=== PATIENT | female | born 2000 | race American Indian/Alaskan Native ===

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

== ENCOUNTER 2020-12-30 13:45 | Emergency (ER) | payer SELFPAY ==
[2020-12-30 14:00] VITALS: BP 112/70
--- NOTE | 2020-12-30 14:27 | Emergency Department Report ---
- General Chief Complaint: Upper Respiratory Infection Stated Complaint: COLD/NEEDS DOCTORS NOTE Time Seen by Provider: 12/30/20 14:19 Source: patient Mode of arrival: Ambulatory Limitations: No Limitations - History of Present Illness Initial Comments: pt is a 20 yo female who presents to the ED with c/o a "cold" that began two days ago. she states her associated symptoms are dry cough, sneezing, rhinorrhea. she states she had a subjective fever yesterday but did not take her temperature. she has not taking anything for cold symptoms. she denies any CP, SOB, n/v/d, dizziness, abd pain, urinary symptoms. no pmhx. no allergies to meds. LNMP 11/16/2020, denies states she has irregular cycles. she denies any known sick contacts or recent travel. she is requesting a note to return to work. - Related Data Home Medications Medication Instructions Recorded Confirmed Last Taken Albuterol Mdi (or & Nicu Only) 2 puff IH QID PRN 11/25/14 11/25/14 11/24/14 [Proair] Fluticasone (Nf) [Flovent Hfa (Nf)] 2 puff IH BID 11/25/14 11/25/14 11/22/14 Previous Rx's Medication Instructions Recorded Last Taken Type Benzonatate [Tessalon Perles] 100 mg PO Q8HR #30 capsule 11/26/14 Unknown Rx Penicillin Vk [Veetids TAB] 500 mg PO BID #20 tablet 11/26/14 Unknown Rx Ibuprofen [Motrin] 600 mg PO Q8H PRN #15 tablet 02/03/18 Unknown Rx Penicillin V Potassium 500 mg PO Q8H 10 Days #30 tablet 02/03/18 Unknown Rx Amoxicillin/Potassium Clav 1 each PO Q12H #20 tablet 10/12/19 Unknown Rx [Augmentin 500-125 Tablet] Ibuprofen [Motrin] 600 mg PO Q8H PRN #20 tablet 10/12/19 Unknown Rx Nystas/Diphen/Xyl Visc/Mylanta 15 ml MM Q6H PRN 5 Days ml 10/12/19 Unknown Rx [Magic Mouthwash] Allergies Allergy/AdvReac Type Severity Reaction Status Date / Time No Known Allergies Allergy Verified 12/30/20 13:59 ED Review of Systems ROS: Stated complaint: COLD/NEEDS DOCTORS NOTE Other details as noted in HPI Comment: All other systems reviewed and negative ED Past Medical Hx - Past Medical History Hx Hypertension: No Hx CVA: No Hx Heart Attack/AMI: No Hx Congestive Heart Failure: No Hx Diabetes: No Hx Deep Vein Thrombosis: No Hx Pulmonary Embolism: No Hx GERD: No Hx Liver Disease: No Hx Renal Disease: No Hx Sickle Cell Disease: No Hx Arthritis: No Hx Headaches / Migraines: Yes Hx Seizures: No Hx Kidney Stones: No Hx Psychiatric Treatment: No Hx Asthma: Yes Hx COPD: No Hx Tuberculosis: No Hx Dementia: No Hx HIV: No Additional medical history: faint frequently - Surgical History Hx Coronary Stent: No Hx Open Heart Surgery: No Hx Pacemaker: No Hx Internal Defibrillator: No Hx Cholecystectomy: No Hx Appendectomy: No Hx Breast Surgery: No - Social History Smoking Status: Current Every Day Smoker Substance Use Type: Marijuana - Medications Home Medications: Home Medications Medication Instructions Recorded Confirmed Last Taken Type Albuterol Mdi (or & Nicu Only) 2 puff IH QID PRN 11/25/14 11/25/14 11/24/14 History [Proair] Fluticasone (Nf) [Flovent Hfa (Nf)] 2 puff IH BID 11/25/14 11/25/14 11/22/14 History Benzonatate [Tessalon Perles] 100 mg PO Q8HR #30 capsule 11/26/14 Unknown Rx Penicillin Vk [Veetids TAB] 500 mg PO BID #20 tablet 11/26/14 Unknown Rx Ibuprofen [Motrin] 600 mg PO Q8H PRN #15 tablet 02/03/18 Unknown Rx Penicillin V Potassium 500 mg PO Q8H 10 Days #30 tablet 02/03/18 Unknown Rx Amoxicillin/Potassium Clav 1 each PO Q12H #20 tablet 10/12/19 Unknown Rx [Augmentin 500-125 Tablet] Ibuprofen [Motrin] 600 mg PO Q8H PRN #20 tablet 10/12/19 Unknown Rx Nystas/Diphen/Xyl Visc/Mylanta 15 ml MM Q6H PRN 5 Days ml 10/12/19 Unknown Rx [Magic Mouthwash] ED Physical Exam - General Limitations: No Limitations General appearance: alert, in no apparent distress - Head Head exam: Present: atraumatic, normocephalic - Eye Eye exam: Present: normal appearance - ENT ENT exam: Present: normal orophraynx, mucous membranes moist, TM's normal bilaterally, normal external ear exam - Respiratory Respiratory exam: Present: normal lung sounds bilaterally. Absent: respiratory distress, wheezes, rales, rhonchi, stridor, chest wall tenderness, accessory muscle use, decreased breath sounds, prolonged expiratory - Cardiovascular Cardiovascular Exam: Present: regular rate, normal rhythm, normal heart sounds. Absent: systolic murmur, diastolic murmur, rubs, gallop - Neurological Exam Neurological exam: Present: alert, oriented X3 - Psychiatric Psychiatric exam: Present: normal affect, normal mood - Skin Skin exam: Present: warm, dry, intact ED Course Vital Signs 12/30/20 13:59 Temperature 99.1 F Pulse Rate 95 H Respiratory 18 Rate Blood Pressure 112/70 O2 Sat by Pulse 98 Oximetry ED Medical Decision Making - Medical Decision Making pt is a 20 yo female who presents to the ED with c/o a "cold" that began two days ago. she states her associated symptoms are dry cough, sneezing, rhinorrhea. she states she had a subjective fever yesterday but did not take her temperature. she has not taking anything for cold symptoms. she denies any CP, SOB, n/v/d, dizziness, abd pain, urinary symptoms. no pmhx. no allergies to meds. LNMP 11/16/2020, denies states she has irregular cycles. she denies any known sick contacts or recent travel. she is requesting a note to return to work. Vitals are normal. No abnormality on physical examination as documented in chart. No signs of pharyngitis, tonsillitis, otitis. No clinical signs of bacterial pneumonia or bacterial bronchitis. Symptoms likely related to viral URI. Advised patient may take mucinex or theraflu for your symptoms. may take tylenol as needed for headache, fever, body aches. increase your fluid intake. follow up with a primary care doctor regarding clearance to return to work. return to the emergency room for any new or worsening symptoms. please follow your work protocol regarding viral illnesses and work. Critical care attestation.: If time is entered above; I have spent that time in minutes in the direct care of this critically ill patient, excluding procedure time. ED Disposition Clinical Impression: Viral URI Disposition: TO HOME OR SELFCARE Is pt being admited?: No Does the pt Need Aspirin: No Condition: Stable Instructions: Viral Respiratory Infection Additional Instructions: may take mucinex or theraflu for your symptoms. may take tylenol as needed for headache, fever, body aches. increase your fluid intake. follow up with a primary care doctor regarding clearance to return to work. return to the emergency room for any new or worsening symptoms. please follow your work pr otocol regarding viral illnesses and work. walk in clinic: [facility] in [place], [place] Address: [address] [place] [address], [place] [address] Referrals: PRIMARY MD RESHMA [Primary Care Provider] - 3-5 Days BRIAN HERNANDEZ MD [Staff Physician] - 3-5 Days [facility] [Provider Group] - 3-5 Days Time of Disposition: 14:25 Print Language: MALTESE
== END 2020-12-30 14:44 | disposition home or self-care (01) ==
LOC: ED 13:45
DX: J06.9 Acute upper respiratory infection, unspecified (principal); G43.909 Migraine, unspecified, not intractable, without status migrainosus; J45.909 Unspecified asthma, uncomplicated; F17.200 Nicotine dependence, unspecified, uncomplicated; Z79.899 Other long term (current) drug therapy
CPT/HCPCS: 99282

== ENCOUNTER 2021-08-29 22:33 | Emergency (ER) | payer SELFPAY ==
[2021-08-30] MEDS ORDERED: SODIUM CHLORIDE 0.9% 1000 ML 1,000 ML IV ONE (00:50)
[2021-08-30] MEDS ORDERED: dexAMETHasone 20 MG/5 ML VIAL IV ONE (00:50)
[2021-08-30] MEDS ORDERED: IBUPROFEN ORAL LIQD 100 MG/5 ML ORAL.LIQD PO ONE ×2 (00:51→01:33)
[2021-08-30] MEDS ORDERED: ACETAMINOPHEN 325 MG/10.15 ML ORAL LIQD UNIT DOSE PO ONE (01:33)
[2021-08-30] MEDS ORDERED: LIDOCAINE VISCOUS 2% 15 ML ORAL LIQD PO ONE (01:33)
--- NOTE | 2021-08-30 01:35 | Emergency Department Report ---
ED General Adult HPI - General Chief complaint: Pain General Stated complaint: My throat is sore. My body is aching. My chest is tight. PUI?: Yes Time Seen by Provider: 08/30/21 00:42 Source: patient, RN notes reviewed, old records reviewed Mode of arrival: Ambulatory Limitations: No Limitations - History of Present Illness Initial comments: The patient was evaluated in the emergency department for symptoms described in the history of present illness. He/she was evaluated in the context of the global COVID-19 pandemic, which necessitated consideration that the patient might be at risk for infection with the virus that causes COVID-19. Institutional protocols and algorithms that pertain to the evaluation of patients at risk for COVID-19 are in a state of rapid change based on information released by regulatory bodies including the CDC and federal and state organizations. These policies and algorithms were followed during the patient's care in the emergency department. Please note that these policies, procedures and recommendations changed on a rapid basis. During the entire history and physical examination, I had on complete personal protective equipment. The patient is a 20-year-old female. She states that she is not . The patient is incompletely vaccinated against COVID-19. She received her first, but not second Covid vaccination a few months ago. She presents to the ER with 1 day of sore throat, dry cough, body aches, chest tightness, generalized malaise. Mild headache. No neck pain. No abdominal pain. No vomiting or diaphoresis. No urinary symptoms. No extremity weakness/numbness. The patient denies being around sick people. The patient denies loss of taste or smell. Patient was treated with Tylenol and ibuprofen in the emergency room, which greatly improved her symptoms. The patient denies travel, surgery, immobilization, DVT and pulmonary embolism risk factors. Patient denies personal and family history of DVT, PE, and CAD. -: Gradual, hour(s) Location: mouth, chest, back, left, right, upper extremity, lower extremity Radiation: non-radiation Severity scale (0 -10): 8 Quality: aching Consistency: constant Improves with: medication, rest Worsens with: movement - Related Data Home Medications Medication Instructions Recorded Confirmed Last Taken Fluticasone (Nf) [Flovent Hfa (Nf)] 2 puff IH BID 11/25/14 11/25/14 11/22/14 Previous Rx's Medication Instructions Recorded Last Taken Type Ibuprofen [Motrin] 600 mg PO Q8H PRN #15 tablet 02/03/18 Unknown Rx Ibuprofen [Motrin] 600 mg PO Q8H PRN #20 tablet 10/12/19 Unknown Rx Acetaminophen [Non-Aspirin Extra 500 mg PO Q6HR PRN #30 tablet 08/30/21 Unknown Rx Strength] Ibuprofen [Motrin] 400 mg PO Q8H PRN #30 tablet 08/30/21 Unknown Rx Nystas/Diphen/Xyl Visc/Mylanta 15 ml MM Q6H PRN 5 Days ml 08/30/21 Unknown Rx [Magic Mouthwash] Allergies Allergy/AdvReac Type Severity Reaction Status Date / Time No Known Allergies Allergy Verified 12/30/20 13:59 ED Review of Systems ROS: Stated complaint: TONSIL SWOLLEN/BODY PAIN/JAMIE Other details as noted in HPI Constitutional: fever, malaise, weakness Eyes: denies: eye discharge ENT: throat pain, congestion. denies: dental pain, hearing loss, epistaxis Respiratory: cough Cardiovascular: chest pain. denies: edema Gastrointestinal: denies: abdominal pain, nausea, vomiting, hematemesis, melena, hematochezia Genitourinary: denies: dysuria Musculoskeletal: back pain, arthralgia, myalgia Neurological: weakness ED Past Medical Hx - Past Medical History Hx Hypertension: No Hx CVA: No Hx Heart Attack/AMI: No Hx Congestive Heart Failure: No Hx Diabetes: No Hx Deep Vein Thrombosis: No Hx Pulmonary Embolism: No Hx GERD: No Hx Liver Disease: No Hx Renal Disease: No Hx Sickle Cell Disease: No Hx Arthritis: No Hx Headaches / Migraines: Yes Hx Seizures: No Hx Kidney Stones: No Hx Psychiatric Treatment: No Hx Asthma: Yes Hx COPD: No Hx Tuberculosis: No Hx Dementia: No Hx HIV: No Additional medical history: faint frequently - Surgical History Hx Coronary Stent: No Hx Open Heart Surgery: No Hx Pacemaker: No Hx Internal Defibrillator: No Hx Cholecystectomy: No Hx Appendectomy: No Hx Breast Surgery: No - Social History Smoking Status: Current Every Day Smoker Substance Use Type: Marijuana - Medications Home Medications: Home Medications Medication Instructions Recorded Confirmed Last Taken Type Fluticasone (Nf) [Flovent Hfa (Nf)] 2 puff IH BID 11/25/14 11/25/14 11/22/14 History Ibuprofen [Motrin] 600 mg PO Q8H PRN #15 tablet 02/03/18 Unknown Rx Ibuprofen [Motrin] 600 mg PO Q8H PRN #20 tablet 10/12/19 Unknown Rx Acetaminophen [Non-Aspirin Extra 500 mg PO Q6HR PRN #30 tablet 08/30/21 Unknown Rx Strength] Ibuprofen [Motrin] 400 mg PO Q8H PRN #30 tablet 08/30/21 Unknown Rx Nystas/Diphen/Xyl Visc/Mylanta 15 ml MM Q6H PRN 5 Days ml 08/30/21 Unknown Rx [Magic Mouthwash] ED Physical Exam - General Limitations: No Limitations General appearance: alert, in no apparent distress - Head Head exam: Present: atraumatic, normocephalic - Eye Eye exam: Present: normal appearance, EOMI. Absent: nystagmus - ENT ENT exam: Present: normal exam, mucous membranes moist, normal external ear exam, other (White plaques noted in the posterior oropharynx). Absent: normal orophraynx - Neck Neck exam: Present: normal inspection, full ROM, lymphadenopathy. Absent: tenderness, meningismus - Respiratory Respiratory exam: Present: other (Pulmonary auscultation not performed secondary to lack of disposable stethoscope). Absent: respiratory distress, stridor - Cardiovascular Cardiovascular Exam: Present: tachycardia (Cardiac auscultation not performed secondary to lack of disposable stethoscope) - GI/Abdominal GI/Abdominal exam: Present: soft. Absent: distended, tenderness, guarding, rebound, rigid, pulsatile mass - Extremities Exam Extremities exam: Present: normal inspection, full ROM, other (2+ pulses noted in the bilateral upper and lower extremities. There is no palpable cord. negative Homans sign. Muscular compartments are soft. The pelvis is stable.). Absent: pedal edema, calf tenderness - Back Exam Back exam: Present: normal inspection, full ROM. Absent: tenderness, CVA tenderness (R), CVA tenderness (L), paraspinal tenderness, vertebral tenderness - Neurological Exam Neurological exam: Present: alert, oriented X3, normal gait, other (No facial droop. Tongue midline. Extraocular movements intact bilaterally. Facial sensation intact to light touch in V1, V2, V3 distribution bilaterally. 5 and a 5 strength in 4 extremities. Sensation intact to light touch in 4 extremities.). Absent: motor sensory deficit - Psychiatric Psychiatric exam: Present: normal affect, normal mood - Skin Skin exam: Present: warm, dry, intact, normal color. Absent: rash ED Course Vital Signs 08/30/21 08/30/21 08/30/21 00:25 02:10 02:24 Temperature 100.8 F H 99.4 F Pulse Rate 128 H 112 H Respiratory 24 17 Rate Blood Pressure 109/64 [Left] O2 Sat by Pulse 100 100 99 Oximetry 08/30/21 08/30/21 08/30/21 02:30 02:46 03:01 Temperature 99.4 F Pulse Rate 112 H Respiratory 17 Rate Blood Pressure 109/64 [Left] O2 Sat by Pulse 100 96 99 Oximetry 08/30/21 08/30/21 03:15 03:20 Temperature Pulse Rate 97 H Respiratory 16 Rate Blood Pressure [Left] O2 Sat by Pulse 99 99 Oximetry - Pulse Oximetry Interpretation Digit-Finger Initial Pulse Oximetry Readin O2 Sat by Pulse Oximetry: 99 Actions Taken: none ED Medical Decision Making - Lab Data Vital Signs 08/30/21 08/30/21 08/30/21 00:25 02:10 02:24 Temperature 100.8 F H 99.4 F Pulse Rate 128 H 112 H Respiratory 24 17 Rate Blood Pressure 109/64 [Left] O2 Sat by Pulse 100 100 99 Oximetry 08/30/21 08/30/21 08/30/21 02:30 02:46 03:01 Temperature 99.4 F Pulse Rate 112 H Respiratory 17 Rate Blood Pressure 109/64 [Left] O2 Sat by Pulse 100 96 99 Oximetry 08/30/21 08/30/21 03:15 03:20 Temperature Pulse Rate 97 H Respiratory 16 Rate Blood Pressure [Left] O2 Sat by Pulse 99 99 Oximetry Lab Results 08/30/21 Range/Units 01:10 Group A Strep Rapid Negative (Negative) - EKG Data -: EKG Interpreted by De EKG shows normal: sinus rhythm Rate: tachycardia - EKG Data 08/30/21 03:40 The EKG is interpreted at 02: 25 Sinus rhythm, tachycardia, rate 106 bpm. Normal axis, normal P wave axis. Low voltage in the septal leads. Poor R wave progression. Abnormal EKG. Not a STEMI. No prior for comparison - Radiology Data Radiology results: pending, report reviewed, image reviewed CHEST 2 VIEWS INDICATION / CLINICAL INFORMATION: cp weakness, flu vs strep. COMPARISON: None available. FINDINGS: SUPPORT DEVICES: None. HEART / MEDIASTINUM: No significant abnormality. LUNGS / PLEURA: No significant pulmonary or pleural abnormality. No pneumothorax. ADDITIONAL FINDINGS: No significant additional findings. IMPRESSION: 1. No acute findings. Signer Name: Sd Parish MD Signed: 08/30/2021 12:48 AM Workstation Name: [id number] - Medical Decision Making Differential diagnosis, including but not limited to: Strep pharyngitis, viral p haryngitis, costochondritis, pneumonia, COVID-19 Assessment and plan: 20-year-old female, presenting with fever, tachycardia, body aches, pharyngeal exudates, and anterior cervical adenopathy, likely viral pharyngitis. Patient medicated appropriately. Please note that steroids, IV fluids, and antibiotics were ordered prior to my personal evaluation of this patient. Strep screen came back negative, this is most likely viral pharyngitis. Tachycardia resolved. The patient is not hypoxic. EKG reviewed and appreciated. Given resolution of tachycardia, benign appearance, patient currently playing on her cell phone, not in any acute distress, perimyocarditis very unlikely. Patient also counseled to complete outpatient COVID-19 vaccination series On final reassessment, the patient is sitting down, playing with her cellular phone, does not appear to be in any acute distress. Return precautions are reviewed. Patient articulates understanding. All questions answered. Critical care attestation.: If time is entered above; I have spent that time in minutes in the direct care of this critically ill patient, excluding procedure time. ED Disposition Clinical Impression: COVID-19 vaccination not done Pharyngitis Qualifiers: Pharyngitis/tonsillitis etiology: unspecified etiology Qualified Code(s): J02.9 - Acute pharyngitis, unspecified Disposition: 01 HOME / SELF CARE / HOMELESS Is pt being admited?: No Does the pt Need Aspirin: No Condition: Good Instructions: Viral Respiratory Infection Additional Instructions: Cultures were sent today, and results will be available in the next 3 to 5 days. Please have your primary care doctor contact the medical records department, to obtain culture results. Please advance diet as tolerated, and drink plenty of fluids. Please complete outpatient COVID-19 vaccination series, when acute febrile illness has resolved. Patient likely has viral pharyngitis. This should resolve within the next few days. We recommend that the patient follow-up with a primary care doctor in 3 to 5 days for repeat checkup and evaluation. Please return to the emergency room right away with new pain, worsened pain, migration of pain, projectile vomiting, change in mental status, confusion, inability to tolerate liquid feeds, new, worsened or different symptoms not present on the initial emergency room evaluation. Referrals: [facility] [Provider Group] - 3-5 Days Forms: Work/School Release Form(ED)
--- NOTE | 2021-08-30 01:52 | XRay Report ---
CHEST 2 VIEWS INDICATION / CLINICAL INFORMATION: cp weakness, flu vs strep. COMPARISON: None available. FINDINGS: SUPPORT DEVICES: None. HEART / MEDIASTINUM: No significant abnormality. LUNGS / PLEURA: No significant pulmonary or pleural abnormality. No pneumothorax. ADDITIONAL FINDINGS: No significant additional findings. IMPRESSION: 1. No acute findings. Signer Name: Sd Parish MD Signed: 08/30/2021 1:48 AM Workstation Name: [id number]
[2021-08-30 02:12] VITALS: BP 109/64
--- NOTE | 2021-08-30 17:46 | Electrocardiograph Report ---
[facility] Test Date: 2021-08-30 Test Time: 02:25:29 Pat Name: JIM CHOWDHURY Department: Room: Gender: F [employer] Worker: : 2000 Requested By: MICHEAL ANSARI Order Number: [id number] Reading MD: Marta Gandhi Measurements Intervals [place] Rate: 106 P: 71 [place]: 136 QRS: 56 QRSD: 63 T: -30 QT: 292 QTc: 389 Interpretive Statements Sinus tachycardia Probable left atrial enlargement Nonspecific T wave abnormality No previous ECG available for comparison Electronically Signed On 08-30-2021 17:45:29 EDT by Marta Gandhi
== END 2021-08-30 04:00 | disposition home or self-care (01) ==
LOC: ED 22:33
DX: J02.9 Acute pharyngitis, unspecified (principal); Z28.89 Immunization not carried out for other reason; R05.9 Cough, unspecified; R07.89 Other chest pain; R53.81 Other malaise; G43.909 Migraine, unspecified, not intractable, without status migrainosus; F17.200 Nicotine dependence, unspecified, uncomplicated; F12.90 Cannabis use, unspecified, uncomplicated
CPT/HCPCS: 71046; 87116; 87430; 93005; 96365; 96375; 99284; J1100; J7030

== ENCOUNTER 2021-09-05 18:23 | Emergency (ER) | payer BC ==
[2021-09-05] MEDS ORDERED: SODIUM CHLORIDE 0.9% 1000 ML 1,000 ML IV ONE (18:48)
[2021-09-05] MEDS ORDERED: KETOROLAC 30 MG/1 ML INJ IV ONE (18:48)
[2021-09-05] MEDS ORDERED: dexAMETHasone 20 MG/5 ML VIAL IV ONE (18:48)
--- NOTE | 2021-09-05 18:49 | Emergency Department Report ---
ED ENT HPI - General Chief complaint: Sore Throat Stated complaint: SWOLLIN TONSILS, Time Seen by Provider: 09/05/21 18:32 Source: patient Mode of arrival: Ambulatory Limitations: No Limitations - History of Present Illness Initial comments: 20-year-old female presents to the ER today with complaints of sore throat. Patient states that her symptoms started last week. She was actually seen here on 08/29/2021 for similar symptoms. Patient was given IV fluids, IV steroids and antibiotics during stay. Her rapid strep was negative, and that her sympto ms were felt to be viral. Patient states that she was only sent home with mouthwash and a prescription for pain. Patient states that after receiving IV medications in the ER she felt better for about 2 to 3 days. But then she started to have her symptoms flareup again and started to get worse. This time this is worse on the left side of her tonsils. She reports pain with opening her mouth but she is able to open it. She reports pain and difficulty swallowing. She denies any drooling. She denies any fever since she was last seen. She denies any difficulty breathing. complaint: sore throat -: week(s) (1) - Related Data Home Medications Medication Instructions Recorded Confirmed Last Taken Fluticasone (Nf) [Flovent Hfa (Nf)] 2 puff IH BID 11/25/14 09/05/21 11/22/14 Previous Rx's Medication Instructions Recorded Last Taken Type Ibuprofen [Motrin] 600 mg PO Q8H PRN #15 tablet 02/03/18 Unknown Rx Ibuprofen [Motrin] 600 mg PO Q8H PRN #20 tablet 10/12/19 Unknown Rx Acetaminophen [Non-Aspirin Extra 500 mg PO Q6HR PRN #30 tablet 08/30/21 Unknown Rx Strength] Ibuprofen [Motrin] 400 mg PO Q8H PRN #30 tablet 08/30/21 Unknown Rx Nystas/Diphen/Xyl Visc/Mylanta 15 ml MM Q6H PRN 5 Days ml 08/30/21 Unknown Rx [Magic Mouthwash] Clindamycin [Clindamycin CAP] 300 mg PO Q6H #40 capsule 09/05/21 Unknown Rx dexAMETHasone [Decadron] 4 mg PO Q12H #10 tablet 09/05/21 Unknown Rx Allergies Allergy/AdvReac Type Severity Reaction Status Date / Time No Known Allergies Allergy Verified 09/05/21 18:29 ED Dental HPI - General Chief complaint: Sore Throat Stated complaint: SWOLLIN TONSILS, Time Seen by Provider: 09/05/21 18:32 Source: patient Mode of arrival: Ambulatory Limitations: No Limitations - Related Data Home Medications Medication Instructions Recorded Confirmed Last Taken Fluticasone (Nf) [Flovent Hfa (Nf)] 2 puff IH BID 11/25/14 09/05/21 11/22/14 Previous Rx's Medication Instructions Recorded Last Taken Type Ibuprofen [Motrin] 600 mg PO Q8H PRN #15 tablet 02/03/18 Unknown Rx Ibuprofen [Motrin] 600 mg PO Q8H PRN #20 tablet 10/12/19 Unknown Rx Acetaminophen [Non-Aspirin Extra 500 mg PO Q6HR PRN #30 tablet 08/30/21 Unknown Rx Strength] Ibuprofen [Motrin] 400 mg PO Q8H PRN #30 tablet 08/30/21 Unknown Rx Nystas/Diphen/Xyl Visc/Mylanta 15 ml MM Q6H PRN 5 Days ml 08/30/21 Unknown Rx [Magic Mouthwash] Clindamycin [Clindamycin CAP] 300 mg PO Q6H #40 capsule 09/05/21 Unknown Rx dexAMETHasone [Decadron] 4 mg PO Q12H #10 tablet 09/05/21 Unknown Rx Allergies Allergy/AdvReac Type Severity Reaction Status Date / Time No Known Allergies Allergy Verified 09/05/21 18:29 ED Review of Systems ROS: Stated complaint: SWOLLIN TONSILS, Other details as noted in HPI Comment: All other systems reviewed and negative Constitutional: denies: chills, fever Eyes: denies: eye pain, eye discharge, vision change ENT: throat pain. denies: ear pain, dental pain, hearing loss, epistaxis, congestion Respiratory: denies: cough, shortness of breath, SOB with exertion, SOB at rest, wheezing Cardiovascular: denies: chest pain, palpitations, dyspnea on exertion, edema, syncope, paroxysmal nocturnal dyspnea Gastrointestinal: denies: abdominal pain, nausea, vomiting, diarrhea, constipation, hematemesis, melena, hematochezia Genitourinary: denies: urgency, dysuria, frequency, hematuria, discharge, abnormal menses, dyspareunia Musculoskeletal: denies: back pain, joint swelling, arthralgia, myalgia Skin: denies: lesions, change in color, change in hair/nails, pruritus Neurological: denies: headache, weakness, numbness, paresthesias, confusion, abnormal gait Psychiatric: denies: anxiety, depression, auditory hallucinations, visual hallucinations, homicidal thoughts, suicidal thoughts Hematological/Lymphatic: denies: easy bleeding, easy bruising ED Past Medical Hx - Past Medical History Hx Hypertension: No Hx CVA: No Hx Heart Attack/AMI: No Hx Congestive Heart Failure: No Hx Diabetes: No Hx Deep Vein Thrombosis: No Hx Pulmonary Embolism: No Hx GERD: No Hx Liver Disease: No Hx Renal Disease: No Hx Sickle Cell Disease: No Hx Arthritis: No Hx Headaches / Migraines: Yes Hx Seizures: No Hx Kidney Stones: No Hx Psychiatric Treatment: No Hx Asthma: Yes Hx COPD: No Hx Tuberculosis: No Hx Dementia: No Hx HIV: No Additional medical history: faint frequently - Surgical History Hx Coronary Stent: No Hx Open Heart Surgery: No Hx Pacemaker: No Hx Internal Defibrillator: No Hx Cholecystectomy: No Hx Appendectomy: No Hx Breast Surgery: No - Social History Smoking Status: Current Every Day Smoker Substance Use Type: Marijuana - Medications Home Medications: Home Medications Medication Instructions Recorded Confirmed Last Taken Type Fluticasone (Nf) [Flovent Hfa (Nf)] 2 puff IH BID 11/25/14 09/05/21 11/22/14 History Ibuprofen [Motrin] 600 mg PO Q8H PRN #15 tablet 02/03/18 09/05/21 Unknown Rx Ibuprofen [Motrin] 600 mg PO Q8H PRN #20 tablet 10/12/19 09/05/21 Unknown Rx Acetaminophen [Non-Aspirin Extra 500 mg PO Q6HR PRN #30 tablet 08/30/21 09/05/21 Unknown Rx Strength] Ibuprofen [Motrin] 400 mg PO Q8H PRN #30 tablet 08/30/21 09/05/21 Unknown Rx Nystas/Diphen/Xyl Visc/Mylanta 15 ml MM Q6H PRN 5 Days ml 08/30/21 09/05/21 Unknown Rx [Magic Mouthwash] Clindamycin [Clindamycin CAP] 300 mg PO Q6H #40 capsule 09/05/21 Unknown Rx dexAMETHasone [Decadron] 4 mg PO Q12H #10 tablet 09/05/21 Unknown Rx ED Physical Exam - General Limitations: No Limitations General appearance: alert, in no apparent distress - Head Head exam: Present: atraumatic, normocephalic, normal inspection - Eye Eye exam: Present: normal appearance, PERRL, EOMI Pupils: Present: normal accommodation - ENT ENT exam: Present: normal exam, mucous membranes moist - Expanded ENT Exam Expanded Mouth exam: Present: muffled voice (mild ). Absent: drooling, trismus, tongue normal, tongue elevation, laceration Throat exam: Positive: tonsillar erythema, tonsillomegaly, tonsillar exudate, other (Prominent left tonsil, but no uvula deviation) - Neck Neck exam: Present: normal inspection, lymphadenopathy (anterior cervical with mild ttp but no cellulitis ) - Respiratory Respiratory exam: Present: normal lung sounds bilaterally. Absent: respiratory distress, wheezes, rales, rhonchi - Cardiovascular Cardiovascular Exam: Present: regular rate, normal rhythm, normal heart sounds - Neurological Exam Neurological exam: Present: alert, oriented X3, CN II-XII intact, normal gait - Psychiatric Psychiatric exam: Present: normal affect, normal mood - Skin Skin exam: Present: intact ED Course Vital Signs 09/05/21 09/05/21 09/05/21 18:27 19:47 20:07 Temperature 99.4 F 99.0 F Pulse Rate 112 H 83 Respiratory 20 18 16 Rate Blood Pressure 119/67 121/76 [Left] O2 Sat by Pulse 99 98 Oximetry ED Medical Decision Making - Medical Decision Making Patient reports that she is feeling much better after IV fluids, clindamycin and Decadron. She was able to tolerate p.o. fluids without any difficulty. She is currently not toxic or ill-appearing. She is able to control his secretions, she has no trismus on exam, no stridor, and she is not in any respiratory distress. Her repeat vital signs are stable. Reviewed patient's last visit, her rapid strep was negative and strep culture was also negative. Simpson test today was also negative. Patient does have bilateral tonsillar swelling, with bilateral exudates but more prominent swelling on the left tonsil concerning for possible developing peritonsillar abscess. Given physical findings, patient will be started on antibiotics. Given that patient is hemodynamically stable, and she denies any respiratory distress, and controlling her secretions and airway appears to be intact, CT scan, admission, nor transfer indicated at this time. Discussed concerns and suspected dx with patient. Discussed treatment plan with patient. Patient given strict warnings that if at any point her symptoms worsens with inability to open her mouth, or control secretions or any difficulty breathing with high fever despite taking medications need to return immediately to the ER. In the meantime she will be given referral to ENT for follow-up. Patient expressed understanding of all instructions and agree with plan. Patient stable at time of discharge. Critical care attestation.: If time is entered above; I have spent that time in minutes in the direct care of this critically ill patient, excluding procedure time. ED Disposition Clinical Impression: Exudative tonsillitis Disposition: HOME / SELF CARE / HOMELESS Is pt being admited?: No Does the pt Need Aspirin: No Condition: Stable Instructions: Tonsillitis, [id number] Additional Instructions: I recommend that you take clindamycin and the decadron as prescribed. Continue to drink lots of fluids. Follow up with ENT listed on discharge instructions if not better in 1 week but if worse with inability to swallow, drooling, inability to open mouth and with high fever return immediately to ED. Prescriptions: Clindamycin [Clindamycin CAP] 300 mg PO Q6H #40 capsule dexAMETHasone [Decadron] 4 mg PO Q12H #10 tablet Referrals: GENET CUADRA MD [Staff Physician] - 3-5 Days (ENT) Forms: Work/School Release Form(ED) Time of Disposition: 22:05
[2021-09-05 20:08] VITALS: BP 121/76
== END 2021-09-05 22:33 | disposition home or self-care (01) ==
LOC: ED 18:23
DX: J03.90 Acute tonsillitis, unspecified (principal); J45.909 Unspecified asthma, uncomplicated; F17.200 Nicotine dependence, unspecified, uncomplicated; F12.90 Cannabis use, unspecified, uncomplicated
CPT/HCPCS: 36415; 86308; 96365; 96366; 96375; 99283; J1100; J1885; J7030

== ENCOUNTER 2021-12-14 21:54 | Emergency (ER) | payer BC | END 2021-12-15 00:19 | disposition left against medical advice (07) | LOC: ED 21:54 | DX: R10.2 Pelvic and perineal pain (principal); Z53.21 Procedure and treatment not carried out due to patient leaving prior to being seen by health care provider ==

== ENCOUNTER 2022-02-04 17:03 | Emergency (ER) | payer SELFPAY | END 2022-02-04 19:15 | disposition left against medical advice (07) | LOC: ED 17:03 | DX: R50.9 Fever, unspecified (principal); Z53.21 Procedure and treatment not carried out due to patient leaving prior to being seen by health care provider ==

== ENCOUNTER 2022-05-06 00:34 | Emergency (ER) | payer SELFPAY ==
[2022-05-06 01:43] LABS: Bilirubin,Urine NEG (Negative); Blood,Urine SM (Negative); Color,Urine Yellow (Yellow); Protein,Urine <15 mg/dL mg/dL (Negative)
[2022-05-06 01:57] LABS: Mucus,Urine 3+ /HPF
[2022-05-06 02:04] LABS: Basophils # (Auto) 0.1 K/mm3 (0.0-0.1); Basophils % (Auto) 0.4 % (0.0-1.8); Eosinophils % (Auto) 0.3 % (0.0-4.3); Hematocrit 30.6 % (30.3-42.9); Hemoglobin 9.5 gm/dl (10.1-14.3); Lymphocytes # (Auto) 1.1 K/mm3 (1.2-5.4); Lymphocytes % (Auto) 9.2 % (13.4-35.0); Mean Corpuscular HGB Conc 31 % (30-34); Mean Corpuscular Volume 82 fl (79-97); Monocytes # (Auto) 0.8 K/mm3 (0.0-0.8); Monocytes % (Auto) 6.9 % (0.0-7.3); Platelet Count 221 K/mm3 (140-440); Red Blood Count 3.73 M/mm3 (3.65-5.03); Red Cell Distribution Width 16.8 % (13.2-15.2)
[2022-05-06 02:20] LABS: Alanine Aminotransferase 8 units/L (7-56); Albumin 4.1 g/dL (3.9-5); BUN/Creatinine Ratio 11; Blood Urea Nitrogen 8 mg/dL (7-17); Calcium 9.6 mg/dL (8.4-10.2); Hemolysis Index 0
[2022-05-06] MEDS ORDERED: KETOROLAC 30 MG/1 ML INJ IV STA (02:32)
[2022-05-06] MEDS ORDERED: ONDANSETRON 4 MG/2 ML INJ IV STA (02:32)
[2022-05-06] MEDS ORDERED: SODIUM CHLORIDE 0.9% 1000 ML 1,000 ML IV ONE (02:32)
--- NOTE | 2022-05-06 03:26 | Emergency Department Report ---
ED Abdominal Pain HPI - General Chief Complaint: Abdominal Pain Stated Complaint: SHARP PAIN LOWER AB /VOMITING Time Seen by Provider: 05/06/22 02:31 Source: patient Mode of arrival: Ambulatory Limitations: No Limitations - History of Present Illness MD Complaint: abdominal pain -: Gradual Location: diffuse Radiation: none Migration to: no migration Severity: mild, moderate Severity scale (0 -10): 7 Quality: aching, dull Consistency: constant Improves With: nothing Worsens With: nothing Associated Symptoms: nausea - Related Data Home Medications Medication Instructions Recorded Confirmed Last Taken Fluticasone (Nf) [Flovent Hfa (Nf)] 2 puff IH BID 11/25/14 09/05/21 11/22/14 Previous Rx's Medication Instructions Recorded Last Taken Type Ibuprofen [Motrin] 600 mg PO Q8H PRN #15 tablet 02/03/18 Unknown Rx Ibuprofen [Motrin] 600 mg PO Q8H PRN #20 tablet 10/12/19 Unknown Rx Acetaminophen [Non-Aspirin Extra 500 mg PO Q6HR PRN #30 tablet 08/30/21 Unknown Rx Strength] Ibuprofen [Motrin] 400 mg PO Q8H PRN #30 tablet 08/30/21 Unknown Rx Nystas/Diphen/Xyl Visc/Mylanta 15 ml MM Q6H PRN 5 Days ml 08/30/21 Unknown Rx [Magic Mouthwash] Clindamycin [Clindamycin CAP] 300 mg PO Q6H #40 capsule 09/05/21 Unknown Rx dexAMETHasone [Decadron] 4 mg PO Q12H #10 tablet 09/05/21 Unknown Rx Ciprofloxacin HCl 500 mg PO BID #20 05/06/22 Unknown Rx Hyoscyamine Subl [Levsin Sl 0.125 0.125 mg SL Q4HR PRN #20 tablet 05/06/22 Unknown Rx TAB] Ondansetron [Zofran ODT TAB] 8 mg PO Q12HR #14 tab.rapdis 05/06/22 Unknown Rx Sulfamethoxazole/Trimethoprim 1 each PO BID #20 tablet 05/06/22 Unknown Rx [Bactrim DS TAB] Allergies Allergy/AdvReac Type Severity Reaction Status Date / Time No Known Allergies Allergy Verified 09/05/21 18:29 ED Review of Systems ROS: Stated complaint: SHARP PAIN LOWER AB /VOMITING Other details as noted in HPI Comment: All other systems reviewed and negative ED Past Medical Hx - Past Medical History Hx Hypertension: No Hx CVA: No Hx Heart Attack/AMI: No Hx Congestive Heart Failure: No Hx Diabetes: No Hx Deep Vein Thrombosis: No Hx Pulmonary Embolism: No Hx GERD: No Hx Liver Disease: No Hx Renal Disease: No Hx Sickle Cell Disease: No Hx Arthritis: No Hx Headaches / Migraines: Yes Hx Seizures: No Hx Kidney Stones: No Hx Psychiatric Treatment: No Hx Asthma: Yes Hx COPD: No Hx Tuberculosis: No Hx Dementia: No Hx HIV: No Additional medical history: faint frequently - Surgical History Hx Coronary Stent: No Hx Open Heart Surgery: No Hx Pacemaker: No Hx Internal Defibrillator: No Hx Cholecystectomy: No Hx Appendectomy: No Hx Breast Surgery: No - Social History Smoking Status: Current Every Day Smoker Substance Use Type: Marijuana - Medications Home Medications: Home Medications Medication Instructions Recorded Confirmed Last Taken Type Fluticasone (Nf) [Flovent Hfa (Nf)] 2 puff IH BID 11/25/14 09/05/21 11/22/14 History Ibuprofen [Motrin] 600 mg PO Q8H PRN #15 tablet 02/03/18 09/05/21 Unknown Rx Ibuprofen [Motrin] 600 mg PO Q8H PRN #20 tablet 10/12/19 09/05/21 Unknown Rx Acetaminophen [Non-Aspirin Extra 500 mg PO Q6HR PRN #30 tablet 08/30/21 09/05/21 Unknown Rx Strength] Ibuprofen [Motrin] 400 mg PO Q8H PRN #30 tablet 08/30/21 09/05/21 Unknown Rx Nystas/Diphen/Xyl Visc/Mylanta 15 ml MM Q6H PRN 5 Days ml 08/30/21 09/05/21 Unknown Rx [Magic Mouthwash] Clindamycin [Clindamycin CAP] 300 mg PO Q6H #40 capsule 09/05/21 Unknown Rx dexAMETHasone [Decadron] 4 mg PO Q12H #10 tablet 09/05/21 Unknown Rx Ciprofloxacin HCl 500 mg PO BID #20 05/06/22 Unknown Rx Hyoscyamine Subl [Levsin Sl 0.125 0.125 mg SL Q4HR PRN #20 tablet 05/06/22 Unknown Rx TAB] Ondansetron [Zofran ODT TAB] 8 mg PO Q12HR #14 tab.rapdis 05/06/22 Unknown Rx Sulfamethoxazole/Trimethoprim 1 each PO BID #20 tablet 05/06/22 Unknown Rx [Bactrim DS TAB] ED Physical Exam - General Limitations: No Limitations General appearance: alert, in no apparent distress - Head Head exam: Present: atraumatic, normocephalic - Eye Eye exam: Present: normal appearance, PERRL, EOMI Pupils: Present: normal accommodation - ENT ENT exam: Present: normal exam, normal orophraynx, mucous membranes moist, TM's normal bilaterally - Neck Neck exam: Present: normal inspection, full ROM - Respiratory Respiratory exam: Present: normal lung sounds bilaterally. Absent: respiratory distress, wheezes, rales, rhonchi - Cardiovascular Cardiovascular Exam: Present: regular rate, normal rhythm. Absent: systolic murmur, diastolic murmur, rubs, gallop - GI/Abdominal GI/Abdominal exam: Present: soft, tenderness (Lower quadrant with palpation. No Rovsing, no return no mass), normal bowel sounds. Absent: hypoactive bowel sounds, organomegaly, pulsatile mass - Speculum exam: Present: vaginal discharge. Absent: cervical discharge, vaginal bleeding Bi-manual exam: Absent: cervical motion tendernes - Extremities Exam Extremities exam: Present: normal inspection - Back Exam Back exam: Present: normal inspection - Neurological Exam Neurological exam: Present: alert, oriented X3 - Psychiatric Psychiatric exam: Present: normal affect, normal mood - Skin Skin exam: Present: warm, dry, intact, normal color. Absent: rash ED Course Vital Signs 05/06/22 00:38 Temperature 98.5 F Pulse Rate 108 H Respiratory 18 Rate Blood Pressure 100/53 O2 Sat by Pulse 99 Oximetry ED Medical Decision Making - Lab Data Result diagrams: 05/06/22 01:47 05/06/22 01:47 - Radiology Data Radiology results: report reviewed [facility] [address] [place] [address] Cat Scan Report Signed Patient: JIM CHOWDHURY MR#: [id number] : 2000 Acct:[id number] Age/Sex: 21 / F ADM Date: 05/06/22 Loc: ED Attending Dr: Ordering Physician: KERA CHAPMAN Date of Service: 05/06/22 Procedure(s): CT abdomen pelvis w con Accession Number(s): [id number] cc: KERA CHAPMAN CT abdomen pelvis w con INDICATION / CLINICAL INFORMATION: Lower ABD Pain. TECHNIQUE: Axial CT images were obtained through the abdomen and pelvis after 75 cc of Omnipaque [address] scans at this location are performed using CT dose redu ction for ANNE by means of automated exposure control. COMPARISON: None available. FINDINGS: LOWER CHEST: No significant abnormality LIVER: Nonspecific periportal edema. Liver is mildly enlarged, measuring 17.9 cm. No focal lesion. GALLBLADDER/BILIARY TREE: No significant abnormality PANCREAS: No significant abnormality SPLEEN: No significant abnormality ADRENALS: No significant abnormality RIGHT KIDNEY / URETER: No significant abnormality LEFT KIDNEY / URETER: No significant abnormality URINARY BLADDER: No significant abnormality REPRODUCTIVE ORGANS: Uterus/adnexa are appropriate for age. STOMACH / BOWEL: Small bowel is normal in caliber. Colon is partially decompressed. There is mild mural thickening of the ascending colon and splenic flexure. The appendix is normal in caliber. LYMPH NODES: No significant adenopathy. VASCULATURE: No significant abnormality. OTHER: Trace free fluid in the pelvis, likely physiologic in this young female patient. No organized collection. No free air. SKELETAL SYSTEM: No acute osseous findings. IMPRESSION: 1. Mild mural thickening of the ascending colon and splenic flexure, may be related to incomplete distention or may reflect mild colitis. 2. Hepatomegaly. Periportal edema is nonspecific but likely related to fluid resuscitation. 3. Other incidental findings as above. Signer Name: Genet aGrcia MD Signed: 05/06/2022 3:41 AM Workstation Name: [id number] Transcribed By: LAWRENCE Dictated By: GENET GARCIA MD Electronically Authenticated By: GENET GARCIA MD Signed Date/Time: 05/06/22 0341 DD/ 0335 TD/TT: - Medical Decision Making This patient presents with abdominal pain of what appears to be colitis. A CT scan was performed to evaluate for potential causes of the abdominal pain, however, neither the clinical exam nor the CT has identified an emergent etiology for the abdominal pain. Specifically, given the benign exam, the laboratory studies, and unremarkable CT, I have a very low suspicion for appendicitis, ischemic bowel, bowel perforation, or any other life threatening d isease. I have discussed with the patient the level of uncertainty with undifferentiated abdominal pain and clearly explained the need to follow-up as noted on the discharge instructions, or return to the Emergency Department immediately if the pain worsens, develops fever, persistent and uncontrollable vomiting, or for any new symptoms or concerns. Critical care attestation.: If time is entered above; I have spent that time in minutes in the direct care of this critically ill patient, excluding procedure time. ED Disposition Clinical Impression: Abdominal pain, Colitis Disposition: 01 HOME / SELF CARE / HOMELESS Is pt being admited?: No Does the pt Need Aspirin: No Condition: Stable Instructions: Abdominal Pain (ED), Abdominal Pain, Adult, Colitis Referrals: [facility] [Provider Group] - 3-5 Days HARINDER MAYBERRY MD [Staff Physician] - 3-5 Days
--- NOTE | 2022-05-06 03:45 | Cat Scan Report ---
CT abdomen pelvis w con INDICATION / CLINICAL INFORMATION: Lower ABD Pain. TECHNIQUE: Axial CT images were obtained through the abdomen and pelvis after 75 cc of Omnipaque [address] scans at this location are performed using CT dose reduction for ALARA by means of automated exposure control. COMPARISON: None available. FINDINGS: LOWER CHEST: No significant abnormality LIVER: Nonspecific periportal edema. Liver is mildly enlarged, measuring 17.9 cm. No focal lesion. GALLBLADDER/BILIARY TREE: No significant abnormality PANCREAS: No significant abnormality SPLEEN: No significant abnormality ADRENALS: No significant abnormality RIGHT KIDNEY / URETER: No significant abnormality LEFT KIDNEY / URETER: No significant abnormality URINARY BLADDER: No significant abnormality REPRODUCTIVE ORGANS: Uterus/adnexa are appropriate for age. STOMACH / BOWEL: Small bowel is normal in caliber. Colon is partially decompressed. There is mild mur al thickening of the ascending colon and splenic flexure. The appendix is normal in caliber. LYMPH NODES: No significant adenopathy. VASCULATURE: No significant abnormality. OTHER: Trace free fluid in the pelvis, likely physiologic in this young female patient. No organized collection. No free air. SKELETAL SYSTEM: No acute osseous findings. IMPRESSION: 1. Mild mural thickening of the ascending colon and splenic flexure, may be related to incomplete dis tention or may reflect mild colitis. 2. Hepatomegaly. Periportal edema is nonspecific but likely related to fluid resuscitation. 3. Other incidental findings as above. Signer Name: Teddy Garcia MD Signed: 05/06/2022 3:41 AM Workstation Name: [id number]
[2022-05-06 05:39] VITALS: BP 115/62
== END 2022-05-06 05:39 | disposition home or self-care (01) ==
LOC: ED 00:34
DX: R10.9 Unspecified abdominal pain (principal); K52.9 Noninfective gastroenteritis and colitis, unspecified; G43.909 Migraine, unspecified, not intractable, without status migrainosus; J45.909 Unspecified asthma, uncomplicated; F17.200 Nicotine dependence, unspecified, uncomplicated; Z79.899 Other long term (current) drug therapy
CPT/HCPCS: 36415; 74177; 80053; 81001; 84703; 85025; 87086; 87210; 96361; 96374; 96375; 99284; J1885; J2405; J7030; Q9967